=== PATIENT | female | born 1975 | race Caucasian/White ===

== ENCOUNTER 2020-10-06 14:40 | Outpatient (CLI) | payer OTHER, SELFPAY ==
--- NOTE | ~2020-10-06 | MM_ITS ---
EXAMINATION: MM screening anthony BI w isiah HISTORY: Screening mammogram TECHNIQUE: Craniocaudal and mediolateral oblique 3-D tomosynthesis images were obtained and synthetic 2-D images were generated. CAD analysis was submitted and interpreted. COMPARISON: No prior mammogram is available for comparison at this institution. BREAST PARENCHYMAL COMPOSITION: The breasts are heterogeneously dense, which may obscure small masses . FINDINGS: There is no evidence of suspicious mass, calcification, or architectural distortion to sugg est malignancy in either breast. There has been no suspicious interval change. IMPRESSION: 1. No mammographic evidence of malignancy. 2. Recommend routine screening mammography in one year. BI-RADS Category 1: Negative Reviewed, dictated and finalized at location A. L MOLDER
[2020-10-06 14:56] LABS: Basophils Absolute Auto 0.06 K/mm3 (0.00-0.10); Basophils Percent Auto 0.6 % (0.0-1.0); Eosinophils Absolute Auto 0.03 K/mm3 (0.02-0.50); Eosinophils Percent Auto 0.3 % (1.0-6.0); Hematocrit 38.1 % (35.0-49.0); Hemoglobin 12.6 g/dL (12.0-15.0); Immature Granulocyte Absolute 0.03 K/mm3 (0.00-0.00); Immature Granulocyte Percent A 0.3 % (0.0-0.0); Lymphocytes Absolute Auto 2.15 K/mm3 (1.10-4.50); Lymphocytes Percent Auto 21.7 % (18.0-42.0); Mean Corpuscular HGB Conc 33.1 g/dL (32.0-36.0); Mean Corpuscular Hemoglobin 33.9 pg (27.0-31.0); Mean Corpuscular Volume 102.4 fL (78.0-102.0); Mean Platelet Volume 9.6 fl (9.2-11.8); Monocytes Percent Auto 5.1 % (2.0-11.0); Neutrophils Absolute Auto 7.1 K/mm3 (1.7-7.2); Platelet Count Result 242 K/mm3 (150-420); Red Blood Count 3.72 M/mm3 (4.20-5.40); Red Cell Distribution Width 12.1 % (11.6-14.4); White Blood Count 9.9 K/mm3 (4.8-10.8)
[2020-10-06 16:10] LABS: Alanine Aminotransferase 14 U/L (14-59); Albumin Level 3.9 g/dL (3.4-5.0); Alkaline Phosphatase 50 U/L (46-116); Anion Gap 6 mmol/L (8-16); Aspartate Amino Transferase 11 U/L (15-37); Bilirubin,Total 0.4 mg/dL (0.00-1.00); Blood Urea Nitrogen 7 mg/dL (7-18); Calcium 8.5 mg/dL (8.5-10.1); Carbon Dioxide 28 mmol/L (21-32); Chloride 101 mmol/L (98-108); Cholesterol 164 mg/dL (0-200); Estimated Glomerular Filt Rate > 60; Free T4 Free Thyroxine 0.87 ng/dL (0.76-1.46); Glucose 107 mg/dL (70-99); HDL Direct 64 mg/dL (40-60); Iron 78 ug/dL (50-170); LDL Cholesterol Calculated 88 mg/dL (<130); Osmolality Calculated 278 mOsm/kg (285-295); Potassium 4.2 mmol/L (3.5-5.1); Sodium 135 mmol/L (136-145); Thyroid Stimulating Hormone 0.81 uIU/mL (0.36-3.74); Total Protein 7.1 g/dL (6.4-8.2); Triglycerides 59 mg/dL (0-150); Vitamin B12 492 pg/mL (193-986)
== END 2020-10-06 14:41 | disposition home or self-care (01) ==
LOC: CHSLAB 14:45
PROVIDERS: PCP Family Medicine; Visit Provider Nurse Practitioner Family
DX: Z12.31 Encounter for screening mammogram for malignant neoplasm of breast (principal); Z12.4 Encounter for screening for malignant neoplasm of cervix; Z13.89 Encounter for screening for other disorder; R53.83 Other fatigue
CPT/HCPCS: 36415; 77063; 77067; 80053; 80061; 82607; 83540; 84439; 84443; 85025; 87491; 87591; 87624; 87661; 88175; G0145

== ENCOUNTER 2021-10-19 12:46 | Outpatient (CLI) | payer OTHER, SELFPAY ==
--- NOTE | ~2021-10-19 | MM_ITS ---
EXAMINATION: MM screening anthony BI w isiah HISTORY: Screening mammogram TECHNIQUE: Craniocaudal and mediolateral oblique 3-D tomosynthesis images were obtained and synthetic 2-D images were generated. CAD analysis was submitted and interpreted. COMPARISON: 10/06/2020 BREAST PARENCHYMAL COMPOSITION: The breasts are extremely dense, which lowers the sensitivity of mamm ography. FINDINGS: There is no evidence of suspicious mass, calcification, or architectural distortion to sugg est malignancy in either breast. There has been no suspicious interval change. IMPRESSION: 1. No mammographic evidence of malignancy. 2. Recommend routine screening mammography in one year. BI-RADS Category 1: Negative Reviewed, dictated and finalized at location A. FARMER
== END 2021-10-19 12:47 | disposition home or self-care (01) ==
LOC: CHSIMG 12:47
PROVIDERS: PCP Nurse Practitioner Family; Visit Provider Nurse Practitioner Family
DX: Z12.31 Encounter for screening mammogram for malignant neoplasm of breast (principal)
CPT/HCPCS: 77063; 77067; 87491; 87591; 88175; G0145

== ENCOUNTER 2021-10-19 16:09 | Outpatient (NON) | payer OTHER, SELFPAY | END 2021-10-19 16:10 | disposition home or self-care (01) | LOC: CHSLAB 16:10 | PROVIDERS: Visit Provider Nurse Practitioner Family | DX: Z12.4 Encounter for screening for malignant neoplasm of cervix (principal); Z13.89 Encounter for screening for other disorder | CPT/HCPCS: 87491; 87591; 88175; G0145 ==

== ENCOUNTER 2022-07-19 14:38 | Outpatient (CLI) | payer OTHER, SELFPAY ==
--- NOTE | ~2022-07-19 | XR_ITS ---
XR hip RT min 2V 07/19/2022 15:07 Indication: Right hip pain Procedure: 2 views right hip Comparison: No prior studies for comparison. Findings: No fracture, subluxation or dislocation. There is heterotopic ossification adjacent to the greater trochanter. Impression: 1: No acute bone or joint abnormality. Reviewed, dictated and finalized at location A. Impression: 1: No acute bone or joint abnormality.
--- NOTE | ~2022-07-19 | XR_ITS ---
EXAM: XR lumbar spine 2-3V DATE: 07/19/2022 15:07 HISTORY: M25.551 - Pain in right hip . COMPARISON: None available. FINDINGS: 5 nonrib-bearing lumbar-type vertebral bodies. Pedicles intact. 3 mm retrolisthesis at L4- 5 and L5-S1. Vertebral body heights preserved. Mild disc space narrowing at L4-5. Moderate disc space narrowing at L5-S1. Multilevel marginal osteophytosis. Moderate hypertrophy and sclerosis in the lum bar facets. No fracture or dislocation. IMPRESSION: Grade 1 retrolistheses at L4-5 and L5-S1. Multilevel degenerative disc disease, moderate at L5-S1. Moderate multilevel facet arthropathy. Reviewed, dictated and finalized at location K. IMPRESSION: Grade 1 retrolistheses at L4-5 and L5-S1. Multilevel degenerative d isc disease, moderate at L5-S1. Moderate multilevel facet arthropathy.
== END 2022-07-19 14:39 | disposition home or self-care (01) ==
LOC: CHSIMG 14:39
PROVIDERS: PCP Nurse Practitioner Family; Visit Provider Nurse Practitioner Family
DX: M25.551 Pain in right hip (principal)
CPT/HCPCS: 72100; 73502

== ENCOUNTER 2022-08-18 09:59 | Outpatient (RCR) | payer OTHER, SELFPAY ==
--- NOTE | 2022-08-18 12:17 | PTOPEVAL1 ---
Assessment and note entered by Ade Monahan DPT Evaluation Information Assessment Status Evaluation Diagnosis Sciatica Onset 01/19/2022 Claim #: [id number] Subjective Information Pt reports back pain from injury at work on 01/19/22 . She was lifting a heavy object and raising it onto a shelf. The object hit the lip of the shelf and started to fall. She instinctively reached out for the object but felt pain immediately. Pain is felt down on the R side of her back buttock down to her knee, sometimes to the lateral portion of her foot. She notes that pain has been worsening over time with a recent incident when driving where her leg was so painful that she could barely use the gas pedal. Pain is worse in the morning as she feels stiff, and she reports sleep has been significantly impacted. Pt reports that she has still been working but when she went to the doctor at the beginning of this month, they changed her to light duty where she has not been lifting more than 5 lbs. She finds herself shifting positions constantly. Pain in her leg is worse than the pain in her back. Denies bowel/bladder changes. She gets some numbness and tingling in her calf but no other locations. She reports she did have once session of PT in [place] where she was very sore afterwards and could barely get up without help. Reported Pain Level Pain Score 4: Self Report Assessment PT Clinical Summary Pt presents to physical therapy with low back pain and radicular symptoms into her R LE and demonstrates decreased strength, decreased mobility, increased neurodynamic sensitivity, and altered posture/gait. She presents with signs and symptoms consistent with lumbar radiculopathy. 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 She was provided with an HEP focused on improving mobility and strength within her tolerance. She will benefit from skilled PT to improve the aforementioned impairments, facilitate symptom relief, and return to functional and recreational activities. Plan of Care Interventions Electrical Stimulation,Hot Pack/Cold Pack,Manual Therapy,Mechanical Traction,Neuro Re-education, Patient/Caregiver Educati,Therapeutic Activities, Th
--- NOTE | 2022-09-20 15:55 | PTOPEVAL1 ---
Assessment and note entered by Ade Monahan DPT Evaluation Information Assessment Status Progress Diagnosis Sciatica Onset 01/19/2022 Claim #: [id number] Subjective Information Pt reports that overall her pain is doing a lot better. She notes still continued discomfort especially after working. She notes that her work has been calling her in more recently with multiple days in a row of work. She notes that the cold weather also hasn't been helping her pain. She notes that she is having more good days since she started PT but her progress is slowed due to working extra. Reported Pain Level Pain Score 4: Self Report Assessment PT Clinical Summary Pt presents to PT with significant improvements in pain, range of motion, strength, gait pattern, core stability, and quality of life since her initial evaluation. Although she has made significant gains in functional status, she is still limited in these areas, especially with mobility, strength, core stability, and neurodynamic sensitivity. Due to her improvements with PT thusfar, she is likely to benefit from additional skilled PT for 1x week to further facilitate symptom relief, improve the aforementioned impairments, and return to full functional and recreational participation. Plan of Care PT Services Indicated Yes Treatment Frequency and 1x week for 6 visits Duration These treatments will address the objective and functional deficits as defined above. The patient will be advanced safely and appropriately in order for the patient to progress towards his/her prior level of function. Additional exercises will be introduced and as well as a comprehensive home exercise program upon discharge, if needed, ?to ensure carryover of functional gains achieved in the clinic. This treatment plan has been reviewed and agreement upon by the patient.
--- NOTE | 2022-12-12 10:23 | BUPTOPEVAL1 ---
Assessment and note entered by Mateo Cedeño Evaluation Information Assessment Status Discharge Diagnosis sciatica Onset 01/19/2022 Subjective Information Pt. reports that she has just missed her recent appointments. She recalls no specific reason for missing. She states that her pain remains in the right leg. She states that her pain continues to vary and pain is similar to what it was at initial evaluation. She continues to work despite pain, but is taking anti-inflammatory daily as well as 2 tylenol. She states that pain will limited her ability to be able to go to sleep. She is taking cyclobenzaprine to sleep at night. She reports that she does not have a follow up scheduled with her doctor at this time. Assessment PT Clinical Summary Pt. demonstrates regression in regards to her Oswestry score. She continues to present with consistent pain reports. Improvements in l.e. strength are noted, specifically on the right side . At this time encourage the pt. to visit with her doctor and inquire regarding MRI study to the lumbar spine to better determine disc integrity. Plan of Care Interventions Electrical Stimulation,Hot Pack/Cold Pack,Manual Therapy,Mechanical Traction,Neuro Re-education, Patient/Caregiver Educati,Therapeutic Activities, Therapeutic Exercise PT Services Indicated Yes Treatment Frequency and D/C from PT to an independent HEP. Duration These treatments will address the objective and functional deficits as defined above. The patient will be advanced safely and appropriately in order for the patient to progress towards his/her prior level of function. Additional exercises will be introduced and as well as a comprehensive home exercise program upon discharge, if needed, ?to ensure carryover of functional gains achieved in the clinic. This treatment plan has been reviewed and agreement upon by the patient.
== END 2022-12-06 17:05 | disposition home or self-care (01) ==
LOC: CHSPT 09:59
PROVIDERS: PCP Nurse Practitioner Family; Visit Provider Nurse Practitioner Family
DX: M54.30 Sciatica, unspecified side (principal)
CPT/HCPCS: 97012; 97110; 97140; 97161; 97530

== ENCOUNTER 2022-11-17 15:58 | Outpatient (NON) | payer OTHER, SELFPAY | END 2022-11-17 15:59 | disposition home or self-care (01) | LOC: CHSLAB 15:59 | PROVIDERS: Visit Provider Nurse Practitioner Family | DX: L02.91 Cutaneous abscess, unspecified (principal) | CPT/HCPCS: 87070; 87205 ==

== ENCOUNTER 2024-12-04 17:22 | Outpatient (NON) | payer SELFPAY ==
--- OUTSIDE RECORDS SUMMARY | 2024-12-04 17:24 | XMS_ITS | Encounter Summary ---
Author Organization [facility] Address [address] [place] [id number] Care Team Providers Care Lumber Straightened Name Role Phone Unavailable Primary Care Provider Unavailabl e Encounter Details Date Type Department Care Team (Late st Contact Info) Description 03/23/2019 Abstract SFL CONVERSION [address] [place] [address] , Generic Conversion, Social History Tobacco Use Types Packs/Day Years Used Date Smoking Tobacco: Never Assessed Comments Unknown Sex and Gender Information Value Date Recorded Sex Assigned at Not on file Legal Sex Female 5:57 PM [employer] Gender Identity Not on file Sexual Orientation Not on file documented as of this encounter Plan of Treatment Not on file documented as of this encounter Visit Diagnoses Not on filedocumented in this encounter
--- OUTSIDE RECORDS SUMMARY | 2024-12-04 17:24 | XMS_ITS | Clinical Summary ---
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 Gender Identity Not on file Sexual Orientation Not on file Plan of Treatment Health Maintenance Due Date Last Done Comments Cervical Cancer Screening Pa p Smear (Age 30 to 64) Every 3 Years 1975 Colorectal Cancer Screening Colonoscopy (10 Years) 1975 Annual Physical 1978 Hepatitis C 1993 DTaP, Tdap and Td Vaccines ( 1 - Tdap) 1994 Hepatitis B Vaccines (1 of 3 - 19+ 3-dose series) 1994 Cervical Cancer Screening Pa p with HPV Testing (Age 30 to 64) Every 5 Years 2005 Cervical Cancer Screening with HPV 2005 Mammogram Screening 2015 COVID-19 Vaccine (2023-2 5 season) 2024 Influenza Adult (#1) 2024 Meningococcal B Vaccine Aged Out No l onger eligible based on patient's age to complete this topic Meningococcal Vaccine Aged Out No ayad jose martin eligible based on patient's age to complete this topic Pneumococcal Vaccine: Pediat rics (0 to 5 Years) and At-Risk Patients (6 to 64 Years) Aged Out No longer eligible b ased on patient's age to complete this topic RSV Immunizations Under 20 Months Aged Out No longer eligible based on patient's age to complete this topic
== END 2024-12-04 17:23 | disposition home or self-care (01) ==
LOC: CHSLAB 17:23
PROVIDERS: Visit Provider Nurse Practitioner Family
DX: H61.891 Other specified disorders of right external ear (principal)
CPT/HCPCS: 87070; 87075; 87205

== ENCOUNTER 2025-03-07 12:12 | Outpatient (CLI) | payer OTHER, SELFPAY ==
--- NOTE | ~2025-03-07 | MM_ITS ---
EXAMINATION: MM screening anthony BI w isiah HISTORY: Screening TECHNIQUE: Craniocaudal and mediolateral oblique 3-D tomosynthesis images were obtained and synthetic 2-D images were generated. CAD analysis was submitted and interpreted. COMPARISON: Comparison to multiple prior studies sequentially, with oldest reviewed study dated 09/16. BREAST PARENCHYMAL COMPOSITION: Dense: The breasts are extremely dense, which lowers the sensitivity of mammography. FINDINGS: There is no evidence of suspicious mass, calcification, or architectural distortion to sugg est malignancy in either breast. There has been no suspicious interval change. IMPRESSION: 1. No mammographic evidence of malignancy. 2. Recommend routine screening mammography in one year. BI-RADS Category 1: Negative Reviewed, dictated and finalized at location B.
== END 2025-03-07 12:13 | disposition home or self-care (01) ==
LOC: MICIMG 12:14
PROVIDERS: PCP Family Medicine; Visit Provider Family Medicine
DX: Z12.31 Encounter for screening mammogram for malignant neoplasm of breast (principal)
CPT/HCPCS: 77063; 77067